=== PATIENT | female | born 1965 | race American Indian/Alaskan Native ===

== ENCOUNTER 2017-04-28 09:29 | Inpatient (IN) | payer MEDICAID ==
[2017-04-28 10:28] LABS: Bacteria,Urine 1+ /HPF (Negative); Bilirubin,Urine NEG (Negative); Blood,Urine NEG (Negative); Ketones,Urine NEG (Negative); Leukocyte Esterase,Urine NEG (Negative); Mucus,Urine FEW /HPF; Nitrite,Urine NEG (Negative); Protein,Urine <15 mg/dL mg/dL (Negative); Urobilinogen,Urine < 2.0 mg/dL (<2.0)
[2017-04-28 10:47] LABS: Basophils % (Auto) 0.7 % (0.0-1.8); Eosinophils % (Auto) 1.8 % (0.0-4.3); Hematocrit 41.4 % (30.3-42.9); Hemoglobin 13.5 gm/dl (10.1-14.3); Mean Corpuscular HGB Conc 33 % (30-34); Mean Corpuscular Hemoglobin 29 pg (28-32); Mean Corpuscular Volume 89 fl (79-97); Platelet Count 252 K/mm3 (140-440); Red Blood Count 4.64 M/mm3 (3.65-5.03); Red Cell Distribution Width 14.9 % (13.2-15.2); White Blood Count 5.9 K/mm3 (4.5-11.0)
[2017-04-28 10:57] LABS: INR 0.87 (0.87-1.13)
[2017-04-28 11:06] LABS: Alanine Aminotransferase 10 units/L (7-56); Albumin 3.9 g/dL (3.9-5); Albumin/Globulin Ratio 1.1 %; Alkaline Phosphatase 64 units/L (35-129); Anion Gap 20 mmol/L; BUN/Creatinine Ratio 28; Blood Urea Nitrogen 14 mg/dL (7-17); Calcium 8.9 mg/dL (8.4-10.2); Carbon Dioxide 24 mmol/L (22-30); Chloride 100.7 mmol/L (98-107); Glucose 91 mg/dL (65-100); Potassium 3.9 mmol/L (3.6-5.0); Sodium 141 mmol/L (137-145); Total Protein 7.5 g/dL (6.3-8.2)
[2017-04-28] MEDS ORDERED: CATAPRES PO ONE (11:52)
[2017-04-28] MEDS ORDERED: NITRO-BID 2% TP ONE (12:08)
[2017-04-28] MEDS ORDERED: ZOFRAN IV ONE (12:08)
[2017-04-28] MEDS ORDERED: MORPHINE IV ONE (12:08)
--- NOTE | 2017-04-28 12:13 | Emergency Department Report ---
HPI - General Chief Complaint: Headache Time Seen by Provider: 04/28/17 11:50 - HPI HPI: Room 8 The patient is a 51-year-old female presenting with a chief complaint of hypertension headache and chest pain. The patient states she saw a dentist yesterday in preparation for dental extraction when she was told her blood pressure was elevated. The patient left and went to the fire department were blood pressure was found to be 180/90. The patient went to the dentist again today and was still found to be hypertensive and subsequently came to the ED. The patient states she's had a frontal headache intermittently for the past 2 days. Patient denies any history of trauma or fever. The patient states for the past week she's had intermittent left-sided chest pain described as sharp in nature. Patient also complains of pain in her left neck. Patient denies nausea/vomiting, shortness of breath but states she is uncertain if she is expansion diaphoresis because she is going through menopause. Patient states she's never had a stress test or cardiac catheterization. The patient states she has been compliant with her lisinopril for her hypertension Location: Chest, head Duration: [See above] Quality: Sharp Severity: 6-12/04 Modifying factors: [see above] Context: [see above] Mode of transportation: Unknown ED Past Medical Hx - Past Medical History Hx Hypertension: Yes - Surgical History Past Surgical History?: No - Family History Family history: no significant - Social History Smoking Status: Never Smoker Substance Use Type: None (denies illicit drug use) ED Review of Systems ROS: Stated complaint: HEAD PAIN Other details as noted in HPI Constitutional: diaphoresis (?) Eyes: denies: eye pain ENT: dental pain Respiratory: denies: shortness of breath Cardiovascular: chest pain Gastrointestinal: denies: abdominal pain Genitourinary: denies: dysuria Musculoskeletal: denies: back pain Neurological: headache Physical Exam - Physical Exam Vital Signs: Vital Signs 04/28/17 09:46 Temperature 98.6 F Pulse Rate 71 Respiratory 18 Rate Blood Pressure 189/112 O2 Sat by Pulse 97 Oximetry Physical Exam: GENERAL: The patient is well-developed well-nourished female lying on stretcher not appearing to be in acute distress. [] HEENT: Normocephalic. Atraumatic. Extraocular motions are intact. Patient has moist mucous membranes. NECK: Supple. No meningitic signs are noted. Trachea midline CHEST/LUNGS: Clear to auscultation. There is no respiratory distress noted. HEART/CARDIOVASCULAR: Regular. There is no tachycardia. There is no gallop rub or murmur. ABDOMEN: Abdomen is soft, nontender. Patient has normal bowel sounds. There is no abdominal distention. SKIN: There is no rash. There is no edema. There is no diaphoresis. NEURO: The patient is awake, alert, and oriented. The patient is cooperative. The patient has no focal neurologic deficits. The patient has normal speech. Cranial nerves II through XII grossly intact, no drift MUSCULOSKELETAL: There is no evidence of acute injury. ED Course Vital Signs 04/28/17 09:46 Temperature 98.6 F Pulse Rate 71 Respiratory 18 Rate Blood Pressure 189/112 O2 Sat by Pulse 97 Oximetry ED Medical Decision Making - Lab Data Result diagrams: 04/28/17 10:14 04/28/17 10:14 Laboratory Tests 04/28/17 04/28/17 04/28/17 10:03 10:14 10:14 WBC 5.9 RBC 4.64 Hgb 13.5 Hct 41.4 MCV 89 MCH 29 MCHC 33 RDW 14.9 Plt Count 252 Lymph % (Auto) 49.2 H [place] % (Auto) 5.1 Eos % (Auto) 1.8 Baso % (Auto) 0.7 Lymph # 2.9 Izard # 0.3 Eos # 0.1 Baso # 0.0 Seg Neutrophils % 43.2 Seg Neutrophils # 2.5 PT 12.3 INR 0.87 APTT 29.0 Sodium Potassium Chloride Carbon Dioxide Anion Gap BUN Creatinine Estimated GFR BUN/Creatinine Ratio Glucose Calcium Total Bilirubin AST ALT Alkaline Phosphatase Troponin T Total Protein Albumin Albumin/Globulin Ratio Urine Color Yellow Urine Turbidity Clear Urine pH 6.0 Ur Specific [place] 1.015 Urine Protein <15 mg/dl Urine Glucose (UA) Neg Urine Ketones Neg Urine Blood Neg Urine Nitrite Neg Urine Bilirubin Neg Urine Urobilinogen < 2.0 Ur Leukocyte Esterase Neg Urine WBC (Auto) 1.0 Urine RBC (Auto) 1.0 U Epithel Cells (Auto) < 1.0 Urine Bacteria (Auto) 1+ Urine Mucus Few 04/28/17 10:14 WBC RBC Hgb Hct MCV MCH MCHC RDW Plt Count Lymph % (Auto) Iz[place] % (Auto) Eos % (Auto) Baso % (Auto) Lymph # [place] # Eos # Baso # Seg Neutrophils % Seg Neutrophils # PT INR APTT Sodium 141 Potassium 3.9 Chloride 100.7 Carbon Dioxide 24 Anion Gap 20 BUN 14 Creatinine 0.5 L Estimated GFR > 60 BUN/Creatinine Ratio 28 Glucose 91 Calcium 8.9 Total Bilirubin 0.20 AST 14 ALT 10 Alkaline Phosphatase 64 Troponin T < 0.010 Total Protein 7.5 Albumin 3.9 Albumin/Globulin Ratio 1.1 Urine Color Urine Turbidity Urine pH Ur Specific [place] Urine Protein Urine Glucose (UA) Urine Ketones Urine Blood Urine Nitrite Urine Bilirubin Urine Urobilinogen Ur Leukocyte Esterase Urine WBC (Auto) Urine RBC (Auto) U Epithel Cells (Auto) Urine Bacteria (Auto) Urine Mucus - EKG Data -: EKG Interpreted by Me EKG shows normal: sinus rhythm Rate: normal - EKG Data When compared to previous EKG there are: previous EKG unavailable Interpretation: nonspecific ST-T wave abdirizak (T-wave inversion in lead aVL, V2 questionable biphasic T-wave in lead V3) - Radiology Data Radiology results: report reviewed (CT head), image reviewed (CT head, chest x- ray) interpreted by me: Chest x-ray-no focal infiltrates, no pneumothorax CT HEAD WITHOUT CONTRAST: HISTORY: Headache. TECHNIQUE: Sequential 2.5mm CT images. COMPARISON: none. FINDINGS: Cerebral Parenchyma: Within normal limits. Cerebellum: Within normal limits. Brainstem: Within normal limits. Ventricles: Normal. Sella: Normal. Extra-axial spaces: Normal. Basal Cisterns: Normal. Intracranial Hemorrhage: None. Midline Shift: None. Calvarium: Normal. Sinuses: Normal. Mastoid Air Cells: Normal. Visualized Orbits: Normal. IMPRESSION: Cranial CT scan within normal limits. Transcribed By: TTR Dictated By: DERECK ANDREA JR, MD Electronically Authenticated By: DERECK ANDREA JR, MD Signed Date/Time: 04/28/171226 DD/ 26 TD/TT: 04/28/171226 - Differential Diagnosis ACS, pericarditis, GERD, intracranial hemorrhage, hypertensive urgency Critical care attestation.: If time is entered above; I have spent that time in minutes in the direct care of this critically ill patient, excluding procedure time. ED Disposition Clinical Impression: Chest pain, Headache, Hypertensive urgency Disposition: DC-09 OP ADMIT IP TO THIS HOSP Is pt being admited?: Yes Does the pt Need Aspirin: Yes Condition: Fair Instructions: Chest Pain (ED) Referrals: PRIMARY CARE,MD [Primary Care Provider] - 3-5 Days Time of Disposition: 12:50 (hospitalist paged (Dr Vera))
--- NOTE | 2017-04-28 12:30 | XRay Report ---
AP CHEST: HISTORY: chest pain AP view of the chest demonstrates a normal mediastinal and cardiac contour with clear lungs and normal bony and soft tissue structures. IMPRESSION: Unremarkable AP chest.
--- NOTE | 2017-04-28 12:32 | Cat Scan Report ---
CT HEAD WITHOUT CONTRAST: HISTORY: Headache. TECHNIQUE: Sequential 2.5mm CT images. COMPARISON: none. FINDINGS: Cerebral Parenchyma: Within normal limits. Cerebellum: Within normal limits. Brainstem: Within normal limits. Ventricles: Normal. Sella: Normal. Extra-axial spaces: Normal. Basal Cisterns: Normal. Intracranial Hemorrhage: None. Midline Shift: None. Calvarium: Normal. Sinuses: Normal. Mastoid Air Cells: Normal. Visualized Orbits: Normal. IMPRESSION: Cranial CT scan within normal limits.
[2017-04-28] MEDS ORDERED: ASPIRIN PO ONE (12:52)
[2017-04-28 14:06] VITALS: BP 119/73
== END 2017-04-28 14:25 | disposition left against medical advice (07) | DRG 305 ==
LOC: ED 09:29 → 4A 14:23
PROVIDERS: ADMIT Internal Medicine; ATTEND Internal Medicine
DX: I16.0 Hypertensive urgency (principal); R51 Headache; R07.9 Chest pain, unspecified
CPT/HCPCS: 36415; 70450; 71010; 80053; 81001; 84484; 85025; 85610; 85730; 93005; 93010; 96374; 96375; J2270; J2405